=== PATIENT | female | born 1995 | race Caucasian/White ===

== ENCOUNTER 2017-04-08 17:54 | Emergency (ER) | payer OTHER ==
[~2017-04-08] VITALS: Ht 165.1 cm; Wt 88.9 kg
[2017-04-08] MEDS ORDERED: PROT1TAB2 PO (18:50)
[2017-04-08 19:14] VITALS: BP 130/65
== END 2017-04-08 19:17 | disposition home or self-care (01) ==
LOC: M ED 18:40
DX: F50.2 Bulimia nervosa (principal); K92.0 Hematemesis; F41.9 Anxiety disorder, unspecified; Z87.891 Personal history of nicotine dependence